=== PATIENT | female | born 1955 | race Caucasian/White ===

== ENCOUNTER 2016-09-20 06:22 | Day surgery (SDC) | payer OTHER ==
[~2016-09-20 06:22] MED LIST: CLINDAMYCIN 600 MG/D5W RTU 600 MG/50 ML RTUPB IV PRN; LACTATED RINGERS 1000 ML IV PRN; LIDOCAINE 0.5% INJ-PF (5 MG/ML) 50 ML SDV SUBCUT PRN
[2016-09-20] MEDS ORDERED: FAMOTIDINE INJ/PF 20 MG/2 ML SDV IV ONE (07:17)
[2016-09-20] MEDS ORDERED: METOCLOPRAMIDE HCL INJ/PF 10 MG/2 ML SDV ONE (07:17)
[2016-09-20] MEDS ORDERED: ALBUTEROL SULFATE 0.083% NEB 2.5 MG/3 ML AMPUL NEB ONE (07:25)
[2016-09-20] MEDS ORDERED: LIDOCAINE 1%/EPINEPHRINE INJ 20 ML VIAL ONE (07:34)
[2016-09-20] MEDS ORDERED: BUPIVACAINE HCL 0.5 % INJ/PF 30 ML SDV ONE (07:34)
[2016-09-20] MEDS ORDERED: MIDAZOLAM 2 MG/2 ML INJ ONE (08:17)
[2016-09-20] MEDS ORDERED: PROPOFOL INJ 200 MG/20 ML VIAL IV ONE (08:18)
[2016-09-20] MEDS ORDERED: FENTANYL CITRATE INJ/PF 100 MCG/2 ML AMPUL ONE (08:18)
[2016-09-20] MEDS ORDERED: PROMETHAZINE HCL INJ 25 MG/1 ML VIAL IV PRN ×2 (08:35)
[2016-09-20] MEDS ORDERED: FENTANYL CITRATE INJ/PF 100 MCG/2 ML AMPUL IV PRN ×3 (08:35)
[2016-09-20] MEDS ORDERED: OXYCODONE-ACETAMINOPHEN 5-325 MG TABLET PO PRN ×2 (08:35)
[2016-09-20] MEDS ORDERED: DIPHENHYDRAMINE HCL 50 MG/ML VIAL IV PRN (08:35)
[2016-09-20] MEDS ORDERED: MORPHINE SULFATE 10 MG/ML INJ IV PRN (08:35)
[2016-09-20] MEDS ORDERED: MEPERIDINE HCL/PF INJ 25 MG/1 ML DISP.SYRIN IV PRN (08:35)
[2016-09-20] MEDS ORDERED: BUPIVACAINE HCL 0.5 % INJ/PF 30 ML SDV INJ ONE (08:46)
[2016-09-20] MEDS ORDERED: LIDOCAINE 1%/EPINEPHRINE INJ 20 ML VIAL INJ ONE (08:46)
--- NOTE | 2016-09-20 09:06 | Operative Report ---
Operative Report DATE OF SURGERY: 09/20/16 PREOPERATIVE DIAGNOSIS: Left medial and lateral meniscal tears POSTOPERATIVE DIAGNOSIS: Left posterior horn medial meniscal tear. 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 Intact anterior cruciate ligament. Left anterior lateral meniscal tear. Grade 2 chondral malacia lateral compartment. Grade 2-3 chondral malacia the patellofemoral compartment OPERATION: Arthroscopic partial left medial and lateral meniscectomy SURGEON: TEOFILO CRESPO ANESTHESIA: LMAC PROCEDURE: With the patient supine on the operating table left lower extremity is prepped and draped in sterile fashion. The knee is insufflated with accommodation Marcaine, Xylocaine, and epinephrine. Through medial and lateral patella approaches. Subsequent medial lateral of toe portals are graded introduction of arthroscope and debridements mentation. The joint is examined in a systematic fashion findings as above. Using comminution mechanical Young, mechanical shaver, electro-frequency frequency ablation probe a partial medial meniscectomy was performed from proxy 9:00 to o'clock on the face of the dial. Subsequently using a similar technique a partial lateral meniscectomy is performed from approximately 3:00 to 6:00 on the face the dial. The joint is a again examined systematic fashion with no new findings. His rotations removed. Portals reapproximated stirrup and nylon. A sterile compressive dressing is applied. Patient returned to PACU in satisfactory condition.
[2016-09-20] MEDS ORDERED: OXYCODONE HCL IR 5 MG TABLET PO PRN (10:00)
[2016-09-20] MEDS ORDERED: RINGERS SOLUTION,LACTATED 1,000 ML IV ONE (10:00)
[2016-09-20] MEDS ORDERED: ONDANSETRON 4 MG TAB.RAPDIS PO PRN (10:29)
[2016-09-20 11:49] VITALS: BP 108/47
== END 2016-09-20 11:40 | disposition home or self-care (01) ==
LOC: OROUT 06:22
PROVIDERS: ATTEND Orthopaedic Surgery
PROC: 0SBD4ZZ Excision of Left Knee Joint, Percutaneous Endoscopic Approach (ICD-10-PCS; 2016-09-20)
PROC: 0SBD4ZZ Excision of Left Knee Joint, Percutaneous Endoscopic Approach (ICD-10-PCS; principal; 2016-09-20 08:30)
DX: M23.322 Other meniscus derangements, posterior horn of medial meniscus, left knee (principal); M23.342 Other meniscus derangements, anterior horn of lateral meniscus, left knee; M22.42 Chondromalacia patellae, left knee; I10 Essential (primary) hypertension; J45.909 Unspecified asthma, uncomplicated; E03.9 Hypothyroidism, unspecified; Z79.899 Other long term (current) drug therapy
CPT/HCPCS: 36415; 84132; 94640; 29880; J2250; J3010; J3490; J2765; J2704; S0028; 1400

== ENCOUNTER 2016-10-01 11:52 | Emergency (ER) | payer OTHER ==
--- NOTE | 2016-10-01 12:04 | ER Document Report ---
ED Medical Screen (RME) - General Stated Complaint: FLU LIKE SYMPTOMS Notes: Flulike symptoms since Sunday I greeted and performed a rapid initial assessment of this patient. Comprehensive ED assessment and evaluation of the patient, analysis of test results and completion of the medical decision making process will be conducted by additional ED providers. TRAVEL OUTSIDE OF THE [place] IN LAST 30 DAYS: No - Related Data Allergies/Adverse Reactions: erythromycin base [Erythromycin Base] Allergy (Severe, Verified 09/12/16 09:12) Penicillins Allergy (Severe, Verified 09/12/16 09:12) Past Medical History - Past Medical History Cardiac Medical History: Reports: Hx Hypertension Denies: Hx Coronary Artery Disease, Hx Heart Attack Pulmonary Medical History: Denies: Hx Asthma, Hx Bronchitis - had bronchitis x 2 in 10years , Hx COPD, Hx Pneumonia Neurological Medical History: Denies: Hx Cerebrovascular Accident, Hx Seizures Endocrine Medical History: Reports: Hx Hypothyroidism Musculoskeltal Medical History: Denies Hx Arthritis Psychiatric Medical History: Reports: Hx Anxiety Past Surgical History: Reports: Hx Orthopedic Surgery - carpal tunnel, Hx Tubal Ligation - Immunizations Immunizations up to date: Yes Hx Diphtheria, Pertussis, Tetanus Vaccination: Yes
[2016-10-01] MEDS ORDERED: BENZONATATE 100 MG CAPSULE PO ONE (13:41)
[2016-10-01] MEDS ORDERED: IPRATROPIUM/ALBUTEROL 0.5-2.5 MG/3 ML AMPUL NEB ONE (13:41)
--- NOTE | 2016-10-01 15:00 | ER Document Report ---
HPI - HPI Patient complains to provider of: flulike symptoms Onset: Other - 2 days Onset/Duration: Gradual Quality of pain: Achy Pain Level: 3 Context: Patient presents complaining of flulike symptoms for the past 2 days. Patient reports cough, congestion, sneezing, body aches. Patient denies any fever. Patient does report multiple sick contacts recently. Associated Symptoms: Nonproductive cough, Rhinnorhea. denies: Chest pain, Productive cough, Fever Exacerbated by: Denies Relieved by: Denies Similar symptoms previously: Yes Recently seen / treated by doctor: No - ROS ROS below otherwise negative: Yes Systems Reviewed and Negative: Yes All other systems reviewed and negative - CONSTITUTIONAL Constitutional: DENIES: Fever, Chills - EENT EENT: REPORTS: Nasal Drainage-Clear, Congestion - RESPIRATORY Respiratory: REPORTS: Coughing - GASTROINTESTINAL Gastrointestinal: DENIES: Nausea, Patient vomiting - URINARY Urinary: DENIES: Dysuria - REPRODUCTIVE Reproductive: DENIES: : - DERM Skin Color: Normal Skin Problems: None Past Medical History - General Information source: Patient - Social History Smoking Status: Never Smoker Chew tobacco use (# tins/day): No Frequency of alcohol use: None Drug Abuse: None Occupation: none Lives with: Family Family History: Reviewed & Not Pertinent, DM, Hypertension, Malignancy Patient has suicidal ideation: No Patient has homicidal ideation: No - Past Medical History Cardiac Medical History: Reports: Hx Hypertension Denies: Hx Coronary Artery Disease, Hx Heart Attack Pulmonary Medical History: Reports: Hx Asthma - As a child, Hx Bronchitis - had bronchitis x 2 in 10years Denies: Hx COPD, Hx Pneumonia Neurological Medical History: Denies: Hx Cerebrovascular Accident, Hx Seizures Endocrine Medical History: Reports: Hx Hypothyroidism Renal/ Medical History: Denies: Hx Peritoneal Dialysis Musculoskeltal Medical History: Denies Hx Arthritis Psychiatric Medical History: Reports: Hx Anxiety Past Surgical History: Reports: Hx Orthopedic Surgery - carpal tunnel, left knee , Hx Tubal Ligation - Immunizations Immunizations up to date: Yes Hx Diphtheria, Pertussis, Tetanus Vaccination: Yes Vertical Provider Document - CONSTITUTIONAL Agree With Documented VS: Yes Exam Limitations: No Limitations General Appearance: WD/WN, No Apparent Distress - INFECTION CONTROL TRAVEL OUTSIDE OF THE [place] IN LAST 30 DAYS: No - HEENT HEENT: Atraumatic, Normocephalic Notes: Clear rhinorrhea, swollen nasal mucosa - NECK Neck: Normal Inspection, Supple. negative: Lymphadenopathy-Left, Lymphadenopathy-Right - RESPIRATORY Respiratory: No Respiratory Distress, Wheezing - With coughing O2 Sat by Pulse Oximetry: 96 - CARDIOVASCULAR Cardiovascular: Regular Rate, Regular Rhythm, No Murmur - BACK Back: Normal Inspection - MUSCULOSKELETAL/EXTREMETIES Musculoskeletal/Extremeties: BERTA MILAN - NEURO Level of Consciousness: Awake, Alert, Appropriate Motor/Sensory: No Motor Deficit - DERM Integumentary: Warm, Dry, No Rash Course - Re-evaluation Re-evalutation: 10/01/16 14:57 Wheezing resolved after nebulizer treatment. Patient with increased air movement bilaterally. Discussed planning care with patient, patient verbalized understanding and agrees with plan of care. Discussed worsening signs or symptoms that patient should return annually for. - Vital Signs Vital signs: Temp Pulse Resp BP Pulse Ox 97.9 F 67 22 H 144/80 H 96 10/01/16 12:05 10/01/16 12:05 10/01/16 12:05 10/01/16 12:05 10/01/16 12:05 - Diagnostic Test Radiology reviewed: Reports reviewed Discharge - Discharge Clinical Impression: Wheezing, Hx of essential hypertension Upper respiratory infection Qualifiers: URI type: unspecified URI Qualified Code(s): J06.9 - Acute upper respiratory infection, unspecified Condition: Stable Disposition: HOME, SELF-CARE Additional Instructions: Return immediately for any new or worsening symptoms Followup with your primary care provider, call tomorrow to make a followup appointment Your blood pressure was mildly elevated today, recheck with your primary doctor to have this evaluated in 1-2 days UPPER RESPIRATORY ILLNESS: You have a viral infection of the respiratory passages -- a "cold." This common infection causes nasal congestion, drainage, and often sore throat and cough. It is highly contagious. The disease usually lasts about 10 to 14 days. There is no "cure" for the viral infection -- it must run its course. If there is a complication, such as bacterial infection in the nose, sinuses, middle ear, or bronchial tubes, antibiotics may be required. The antibiotics won't affect the virus. Drink plenty of fluids. A humidifier may help. An expectorant medication or decongestant may make you more comfortable. Use acetaminophen or ibuprofen for fever or aches. See the doctor if fever persists over two days, if there is any significant worsening of your symptoms, or if you simply fail to improve as expected. BRONCHOSPASM: You have tightness in the bronchial tubes, called bronchospasm. This often occurs with bronchial infections. Allergies, inhaled chemicals, and polluted or cold air can also provoke bronchospasm. It's more likely in patients with asthma in the family. Emergency treatment of bronchospasm may include adrenaline shots or bronchodilator aerosol. You may feel lightheaded and have a rapid pulse for an hour or two. Rest and get plenty of fluids. At home, we'll treat you with a bronchodilator inhaler. Antibiotics and corticosteroids may be required for some patients. Until you recover, avoid chemical fumes, dusts, pollens, and exercising in very cold or dry air. If you smoke, stop now!! If you develop a fever, increased wheezing, chest pain, or severe shortness of breath, you should contact the doctor immediately. INHALED BRONCHODILATORS: You have received a treatment of and/or prescription for an inhaled bronchodilator -- a medication which stimulates the airways in the lung to dilate. This improves the flow of air in asthma, bronchitis, and emphysema. These medicines have some similarity to adrenaline, and can cause similar side effects: shakiness, racing heart, and a sense of nervousness. These side effects decrease with time. Contact your doctor if these side effects are severe. Do not over-use the medicine. Too-frequent use of the inhaler may make it ineffective. Call your doctor if the inhaler is not controlling your symptoms at the prescribed doses. STEROID MEDICATION: You have been given an injection of or oral medicine of the cortisone/ steroid class. This medication is used to control inflammation or allergy. Lorenzo t is usually only given for a short period of time, until the acute process subsides. There are usually no side effects from short-term use of cortisone-like medications. Some persons feel an increased sense of well-being and are not sleepy at bedtime. Long-term use of cortisone medications is best avoided, unless required for a severe condition. If your condition does not remit, or relapses after the course of corticosteroid medication, you should consult your physician. USE OF ACETAMINOPHEN (Tylenol): Acetaminophen may be taken for pain relief or fever control. It's much safer than aspirin, offering a wider range of "safe" dosages. It is safe during . Some brand names are Tylenol, Panadol, Datril, Anacin 3, Tempra, and Liquiprin. Acetaminophen can be repeated every four hours. The following are maximum recommended dosages: >89 pounds or adults 650 mg to 900 mg Acetaminophen can be repeated every four hours. Maximum dose not to exceed 4000 mg a day. FOLLOW-UP CARE: If you have been referred to a physician for follow-up care, call the physician s office for an appointment as you were instructed or within the next two days. If you experience worsening or a significant change in your symptoms, notify the physician immediately or return to the Emergency Department at any time for re-evaluation. Prescriptions: Albuterol Sulfate [Ventolin Hfa] 2 puff IH Q4HP PRN #17 gm PRN Reason: Benzonatate [Tessalon Perle 100 mg Capsule] 100 mg PO Q8HP PRN #20 cap PRN Reason: Prednisone [Deltasone 20 mg Tablet] 3 tab PO DAILY 4 Days Referrals: CORY LARSEN MD [Primary Care Provider] - Follow up tomorrow
[2016-10-01 15:13] VITALS: BP 119/51
== END 2016-10-01 15:13 | disposition home or self-care (01) ==
LOC: ER 11:52
DX: J06.9 Acute upper respiratory infection, unspecified (principal); R05 Cough; R06.7 Sneezing; R06.2 Wheezing; I10 Essential (primary) hypertension; R52 Pain, unspecified; J34.89 Other specified disorders of nose and nasal sinuses
CPT/HCPCS: 94640; 99283; 71020; J7620